=== PATIENT | female | born 1970 | race African-American/Black ===

== ENCOUNTER 2017-11-23 09:02 | Day surgery (SDC) | payer OTHER ==
[2017-11-18 10:19] LABS: Basophils # (auto) 0.1 uL; Basophils % (auto) 0.9 % (0.0-2.0); Eosinophils # (auto) 0.2 uL; Eosinophils % (auto) 3.7 % (0.0-7.0); Hematocrit 39.9 % (36.0-46.0); Hemoglobin 13.5 g/dL (12.2-16.2); Lymphocytes # (auto) 2.5 uL; Mean Corpuscular Hgb Conc. 33.8 g/dL (32.0-36.0); Mean Corpuscular Volume 91.8 fL (80.0-100.0); Monocytes # (auto) 0.5 uL; Monocytes % (auto) 8.7 % (0.0-12.0); Neutrophils # (auto) 2.7 uL; Neutrophils % (auto) 44.7 % (37.0-80.0); Platelet Count (auto) 237 10^3/uL (140-450); Red Blood Cells 4.34 10^6/uL (4.0-5.20)
[2017-11-18 10:28] LABS: Urine Amorphous Crystal FEW /hpf (None Seen); Urine Bacteria NONE SEEN /hpf (None Seen); Urine Blood Negative /uL (Negative); Urine Specific Gravity 1.018 (1.001-1.035); Urine WBC 1 /hpf (0 - 5)
[2017-11-18 10:33] LABS: INR 0.96 (0.9-1.15); Partial Thromboplastin Time 29.7 sec (22.64-33.71); Prothrombin Time 10.5 sec (9.37-12.3)
[2017-11-18 10:50] LABS: Albumin 3.9 g/dL (3.4-5.0); BUN/Creatinine Ratio 12.7; Bilirubin, Total 0.2 mg/dL (0.2-1.0); Calcium 8.6 mg/dL (8.5-10.1); Potassium 3.9 mmol/L (3.5-5.1); Total Protein 7.5 g/dL (6.4-8.2)
[~2017-11-23] VITALS: Ht 162.6 cm; Wt 68.5 kg
[2017-11-23] MEDS ORDERED: ceFAZolin 1GM/50ML 50 ML IV ONE (10:36)
[2017-11-23] MEDS ORDERED: BUPIVACAINE 0.75% INJ 10ML MPV SDV IJ ONE (11:46)
[2017-11-23] MEDS ORDERED: fentaNYL CITRATE 100 MCG/2 ML VL ONE (12:45)
[2017-11-23] MEDS ORDERED: MIDAZOLAM HCL 1MG/1ML-2 ML VIAL ONE (12:46)
[2017-11-23] MEDS ORDERED: PROPOFOL 10 MG/ML 20 ML IV ONE (12:47)
[2017-11-23] MEDS ORDERED: hydrALAZINE HCL 20 MG/ML VL IV PRN (13:15)
[2017-11-23] MEDS ORDERED: ONDANSETRON HCL 4 MG/2 ML VIAL IV ONE (13:15)
[2017-11-23] MEDS ORDERED: ePHEDrine SULFATE 50 MG/ML AMP IV PRN (13:15)
[2017-11-23 13:50] VITALS: BP 126/78
[2017-11-23] MEDS ORDERED: fentaNYL CITRATE 100 MCG/2 ML VL IV ONE (14:00)
== END 2017-11-23 13:50 | disposition home or self-care (01) ==
LOC: SUR 09:02
PROVIDERS: ATTEND Podiatrist Foot & Ankle Surgery
DX: M72.2 Plantar fascial fibromatosis (principal); Z91.040 Latex allergy status; E66.9 Obesity, unspecified; Z90.710 Acquired absence of both cervix and uterus; Z79.01 Long term (current) use of anticoagulants; Z98.51 Tubal ligation status; I95.9 Hypotension, unspecified
CPT/HCPCS: 28060; 36415; 80053; 81001; 81025; 85025; 85610; 85730; J0690; J2250; J2704; J3010; J3490; Q4139

== ENCOUNTER 2017-12-16 08:26 | Day surgery (SDC) | payer OTHER ==
[~2017-12-16] VITALS: Ht 165.1 cm; Wt 68.0 kg
[2017-12-16] MEDS ORDERED: LIDOCAINE HCL 2 %PF INJ 10ML AMP IJ ONE (08:32)
[2017-12-16] MEDS ORDERED: IOHEXOL 350 MG/ML 100ML IJ ONE (08:32)
[2017-12-16] MEDS ORDERED: VERAPAMIL 2.5MG/ML INJ 2ML VIAL IV ONE (09:45)
[2017-12-16] MEDS ORDERED: HEPARIN SODIUM (PORCINE) 5000 UNITS/ML 1ML VIAL ONE (09:45)
[2017-12-16] MEDS ORDERED: MIDAZOLAM HCL 1MG/1ML-2 ML VIAL ONE (09:46)
[2017-12-16] MEDS ORDERED: fentaNYL CITRATE 100 MCG/2 ML VL ONE (09:46)
== END 2017-12-16 13:40 | disposition home or self-care (01) ==
LOC: CATH 08:26
PROVIDERS: ATTEND Internal Medicine Cardiovascular Disease
DX: R94.39 Abnormal result of other cardiovascular function study (principal); Z91.040 Latex allergy status
CPT/HCPCS: 93458; C1769; C1887; C1894; J1644; J2250; J3010; J7030; Q9967; 99152